=== PATIENT | male | born 2000 | race Caucasian/White ===

== ENCOUNTER 2023-12-30 23:18 | Emergency (ER) | payer OTHER ==
[~2023-12-30] VITALS: Ht 180.3 cm; Wt 88.5 kg
[2023-12-31 00:05] VITALS: BP 143/93; PULSE 81; RESP 20; TEMP 98; O2SAT 98
[2023-12-31 01:20] VITALS: BP 137/90; PULSE 84; RESP 20; TEMP 98.1; O2SAT 98
== END 2023-12-31 03:28 | disposition home or self-care (01) ==
LOC: MED 23:18
DX: R20.0 Anesthesia of skin (principal)
CPT/HCPCS: 99281

== ENCOUNTER 2024-01-14 00:45 | Emergency (ER) | payer OTHER ==
[~2024-01-14] VITALS: Ht 180.3 cm; Wt 93.0 kg
[2024-01-14 01:14] VITALS: BP 148/90; PULSE 100; RESP 22; TEMP 98; O2SAT 98
[2024-01-14 01:28] VITALS: O2SAT 98
[2024-01-14 01:38] VITALS: BP 131/67; PULSE 100; RESP 14; TEMP 97.7; O2SAT 95
[2024-01-14] MEDS: LORazepam 1 MG TAB PO ONE (01:53)
[2024-01-14] MEDS: clonazePAM 0.5 MG TAB PO ONE ×2 (02:28)
== END 2024-01-14 02:57 | disposition home or self-care (01) ==
LOC: MED 00:45
DX: F41.9 Anxiety disorder, unspecified (principal); F41.0 Panic disorder [episodic paroxysmal anxiety]; F32.A Depression, unspecified; Z88.0 Allergy status to penicillin; Z88.8 Allergy status to other drugs, medicaments and biological substances
CPT/HCPCS: 93005; 99283

== ENCOUNTER 2024-01-16 15:01 | Inpatient (IN) | payer OTHER ==
[~2024-01-16] VITALS: Ht 180.3 cm; Wt 88.5 kg
[2024-01-16 15:10] VITALS: BP 148/100; PULSE 112; RESP 20; TEMP 98; O2SAT 96
[2024-01-16 16:12] LABS: BASOPHILS % (AUTO) 0.2 % (0.0-2.0); EOSINOPHILS # (AUTO) 0.1 K/uL (0-0.4); LYMPHOCYTES # (AUTO) 1.5 K/uL (2.0-11.5); LYMPHOCYTES % (AUTO) 26.2 % (20.5-51.1); MEAN CORPUSCULAR HEMOGLOBIN 27 pg (27-31); MEAN CORPUSCULAR HGB CONC 33 g/dL (33-37); MEAN CORPUSCULAR VOLUME 81.7 fL (80-94); MONOCYTES # (AUTO) 0.8 K/uL (0.8-1.0); MONOCYTES % (AUTO) 13.3 % (1.7-9.3); NEUTROPHILS # (AUTO) 3.4 K/uL (1.8-7.7); NEUTROPHILS % (AUTO) 58.3 % (42.2-75.2); PLATELET COUNT (AUTO) 254 K/uL (140-450); RED CELL DISTRIBUTION WIDTH 15.9 % (11.6-13.7); WHITE BLOOD COUNT (AUTO) 5.9 K/uL (4.8-10.8)
[2024-01-16] MEDS: LORazepam 1 MG TAB PO ONE ×2 (16:28→17:36)
[2024-01-16 16:31] LABS: ALANINE AMINOTRANSFERASE 22 U/L (12-78); ALCOHOL, BLOOD < 3 mg/dL (<10); ALKALINE PHOSPHATASE 72 U/L (50-136); ANION GAP 12.9 (8-16); ASPARTATE AMINOTRANSFERASE 15 U/L (15-37); CALCIUM 9.6 mg/dL (8.5-10.1); CARBON DIOXIDE 30.2 mmol/L (21-32); CHLORIDE 98 mmol/L (98-107); GFR ARICAN-AMERICAN 119 mL/min (>90); GFR NON ARICAN-AMERICAN 98 mL/min (>90); GLUCOSE 93 mg/dL (74-106); POTASSIUM 4.1 mmol/L (3.5-5.1); SODIUM SERUM 137 mmol/L (136-145); TOTAL BILIRUBIN 0.3 mg/dL (0.0-1.0); TOTAL PROTEIN, SERUM 7.8 g/dL (6.4-8.2); UREA NITROGEN, BLOOD 4 mg/dL (7-18)
[2024-01-16 16:32] LABS: ACETAMINOPHEN < 0.5 ug/ml (10-30); SALICYLATE < 2.8 mg/dL (2.8-20.0)
[2024-01-16 17:25] LABS: AMPHETAMINE, URINE NEGATIVE ng/ml (NEG <=1000); BARBITURATE, URINE NEGATIVE ng/ml (NEG <=200); BENZODIAZEPINE, URINE POSITIVE ng/mL (NEG <=200); CANNABINOID, URINE NEGATIVE ng/mL (NEG <=50); COCAINE, URINE NEGATIVE ng/mL (NEG <=300); OPIATE, URINE NEGATIVE ng/mL (NEG <=2000); PHENCYCLIDINE SCREEN,URINE NEGATIVE ng/mL (NEG <=25)
[2024-01-16] MEDS ORDERED: ACETAMINOPHEN 325 MG TAB PO PRN (18:55)
[2024-01-16] MEDS ORDERED: ALBUTEROL 0.083% 2.5 MG/3 ML NEBU INH PRN (18:55)
[2024-01-16] MEDS ORDERED: ONDANSETRON 4 MG/2 ML VIAL IVP PRN (18:55)
[2024-01-16] MEDS: NACL 0.9% 1,000 ML IV SCH (18:55)
[2024-01-16] MEDS ORDERED: LORazepam 2 MG/ML VIAL IVP PRN (18:55)
[2024-01-16 18:59] VITALS: O2SAT 97
[2024-01-16] MEDS ORDERED: ESK300 PO (20:13)
[2024-01-16] MEDS ORDERED: DIVA500T1 PO (20:13)
[2024-01-16] MEDS ORDERED: BUPR1FIL5 SL (20:13)
[2024-01-16] MEDS ORDERED: HYDR25CA1 PO (20:13)
[2024-01-16] MEDS ORDERED: PALI6TER PO (20:13)
[2024-01-16] MEDS ORDERED: DULO60EC1 PO (20:13)
[2024-01-16] MEDS ORDERED: LAM25 PO (20:13)
[2024-01-16] MEDS: clonazePAM 0.5 MG TAB PO PRN (21:30)
[2024-01-16 23:06] LABS: APPEARANCE,URINE CLEAR (CLEAR); BILIRUBIN,URINE NEGATIVE (NEGATIVE); BLOOD, URINE NEGATIVE (NEGATIVE); COLOR,URINE YELLOW (YELLOW); LEUKOCYTE ESTERASE ,URINE NEGATIVE (NEGATIVE); NITRITE, URINE NEGATIVE (NEGATIVE); PH,URINE 7.5 (5.0-9.0); PROTEIN,URINE NEGATIVE (NEGATIVE); UGLUCOSE NEGATIVE (NEGATIVE); UROBILINOGEN,URINE 0.2 EU/dL (0.2 - 1)
[2024-01-17] VITALS (10 sets, daily range): BP systolic 110–136; BP diastolic 76–83; PULSE 74–111; RESP 16–18; TEMP 97.1–99.1; O2SAT 96–100
[2024-01-17] MEDS: LORazepam 1 MG TAB PO PRN (01:34)
[2024-01-17] MEDS: clonazePAM 0.5 MG TAB PO ONE (05:23)
[2024-01-17] MEDS: hydrOXYzine PAMOATE 25 MG CAP PO SCH (12:00)
[2024-01-17] MEDS: IPRATROPIUM 0.02% 0.5 MG/2.5 ML NEBU INH SCH (13:00)
[2024-01-17] MEDS: DIVALPROEX 500 MG TABEC PO SCH (20:46)
[2024-01-17] MEDS ORDERED: IPRATROPIUM 0.02% 0.5 MG/2.5 ML NEBU INH PRN (23:15)
[2024-01-18] VITALS (7 sets, daily range): BP systolic 112–126; BP diastolic 68–74; PULSE 77–95; RESP 17–20; TEMP 95.5–98.6; O2SAT 95–98
[2024-01-18] MEDS: DULoxetine 30 MG CAPDR PO SCH (08:12)
[2024-01-18] MEDS: LITHIUM CARBONATE 300 MG TAB PO SCH (08:12)
[2024-01-18] MEDS: lamoTRIgine 25 MG TAB PO SCH (08:12)
[2024-01-18] MEDS ORDERED: [UNRECOGNIZED DRUG - OTHER] SL SCH (09:00)
[2024-01-18] MEDS ORDERED: BUPRENORPHINE HCL SL SCH (09:00)
[2024-01-18] MEDS ORDERED: NALOXONE HCL SL SCH (09:00)
[2024-01-18 14:36] LABS: ANION GAP 14.4 (8-16); CALCIUM 9.7 mg/dL (8.5-10.1); CARBON DIOXIDE 28.3 mmol/L (21-32); CREATININE 0.8 mg/dL (0.6-1.3); POTASSIUM 4.7 mmol/L (3.5-5.1)
[2024-01-18 15:20] LABS: BASOPHILS % (AUTO) 0.5 % (0.0-2.0); EOSINOPHILS # (AUTO) 0.1 K/uL (0-0.4); EOSINOPHILS % (AUTO) 2.2 % (0.0-4.0); HEMATOCRIT 42.5 % (36-52); HEMOGLOBIN 14.3 g/dL (12.0-18.0); LYMPHOCYTES # (AUTO) 1.2 K/uL (2.0-11.5); MEAN CORPUSCULAR HEMOGLOBIN 27 pg (27-31); MEAN CORPUSCULAR HGB CONC 34 g/dL (33-37); MEAN CORPUSCULAR VOLUME 81.3 fL (80-94); MONOCYTES # (AUTO) 0.4 K/uL (0.8-1.0); MONOCYTES % (AUTO) 10.5 % (1.7-9.3); NEUTROPHILS # (AUTO) 2.4 K/uL (1.8-7.7); NEUTROPHILS % (AUTO) 57.8 % (42.2-75.2); PLATELET COUNT (AUTO) 269 K/uL (140-450); RED BLOOD CELL COUNT(AUTO) 5.23 MIL/uL (4.20-6.10); RED CELL DISTRIBUTION WIDTH 16.2 % (11.6-13.7); WHITE BLOOD COUNT (AUTO) 4.1 K/uL (4.8-10.8)
[2024-01-18] MEDS: QUEtiapine FUMARATE 100 MG TAB PO SCH (20:29)
[2024-01-19 08:00] VITALS: BP 122/66; PULSE 67; PULSE 69; RESP 17; TEMP 98; O2SAT 96; O2SAT 98
[2024-01-19] MEDS: NICOTINE TRANSD SYS 14 MG/24 HR PATCH TD SCH (09:00)
[2024-01-19 12:00] VITALS: BP 119/72; PULSE 84; RESP 17; TEMP 97.9; O2SAT 96
[2024-01-19 14:29] LABS: BASOPHILS % (AUTO) 0.1 % (0.0-2.0); EOSINOPHILS # (AUTO) 0.1 K/uL (0-0.4); EOSINOPHILS % (AUTO) 1.8 % (0.0-4.0); HEMATOCRIT 42.5 % (36-52); HEMOGLOBIN 14.2 g/dL (12.0-18.0); LYMPHOCYTES # (AUTO) 1.3 K/uL (2.0-11.5); MEAN CORPUSCULAR HEMOGLOBIN 27 pg (27-31); MEAN CORPUSCULAR HGB CONC 34 g/dL (33-37); MEAN CORPUSCULAR VOLUME 81.5 fL (80-94); MONOCYTES # (AUTO) 0.5 K/uL (0.8-1.0); MONOCYTES % (AUTO) 9.4 % (1.7-9.3); NEUTROPHILS # (AUTO) 3.8 K/uL (1.8-7.7); NEUTROPHILS % (AUTO) 66.7 % (42.2-75.2); PLATELET COUNT (AUTO) 266 K/uL (140-450); RED BLOOD CELL COUNT(AUTO) 5.21 MIL/uL (4.20-6.10); RED CELL DISTRIBUTION WIDTH 15.7 % (11.6-13.7); WHITE BLOOD COUNT (AUTO) 5.7 K/uL (4.8-10.8)
[2024-01-19 14:52] LABS: ANION GAP 12.5 (8-16); CALCIUM 9.4 mg/dL (8.5-10.1); CREATININE 0.8 mg/dL (0.6-1.3); POTASSIUM 4.5 mmol/L (3.5-5.1)
[2024-01-19 15:05] VITALS: BP 112/64; PULSE 81; RESP 17; TEMP 98
== END 2024-01-19 15:59 | disposition home or self-care (01) | DRG 880 ==
LOC: MED 15:01 → MTU 19:03 → MMU 19:57
PROVIDERS: ADMIT Student in an Organized Health Care Education/Training Program; ATTEND Student in an Organized Health Care Education/Training Program
DX: F41.9 Anxiety disorder, unspecified (principal); G40.89 Other seizures; Z59.00 Homelessness unspecified; F19.10 Other psychoactive substance abuse, uncomplicated; F31.9 Bipolar disorder, unspecified; Z88.0 Allergy status to penicillin; Z79.899 Other long term (current) drug therapy
CPT/HCPCS: 36415; 80048; 80053; 80305; 81003; 83735; 84484; 85025; 87081; 93005; 99291; G0480; G0482; J2405; J7644; Q0177